=== PATIENT | male | born 1985 | race Caucasian/White ===

== ENCOUNTER 2017-11-09 21:37 | Emergency (ER) | payer MEDICAID ==
[~2017-11-09] VITALS: Ht 180.3 cm; Wt 136.4 kg
[2017-11-09 21:47] VITALS: Ht 180.3 cm; Wt 136.4 kg
[2017-11-09] MEDS ORDERED: DEPAKOTE500 MG PO (21:49)
[2017-11-09] MEDS ORDERED: HALDOL5 MG PO (21:49)
[2017-11-09] MEDS ORDERED: LOPID600 MG PO (21:50)
[2017-11-09] MEDS ORDERED: COLACE100 MG PO (21:50)
[2017-11-09] MEDS ORDERED: PROZAC20 MG PO (21:50)
[2017-11-09] MEDS ORDERED: BENZTROPINE MESY1 MG PO (21:50)
[2017-11-09] MEDS ORDERED: OMEPRAZOLE20 M1 PO (21:51)
[2017-11-09] MEDS ORDERED: DESMOPRESSIN A0.2 MG PO (21:51)
[2017-11-09] MEDS ORDERED: NIASPAN500 MG PO (21:52)
[2017-11-09] MEDS ORDERED: TRAZODONE HCL100 MG (21:52)
[2017-11-09 22:10] LABS: UDS - AMPHET NEGATIVE QUAL (NEGATIVE); UDS - BARB NEGATIVE QUAL (NEGATIVE); UDS - BENZO NEGATIVE QUAL (NEGATIVE); UDS - COCAINE NEGATIVE QUAL (NEGATIVE); UDS - OPIATE NEGATIVE QUAL (NEGATIVE); UDS - PCP NEGATIVE QUAL (NEGATIVE); UDS - THC NEGATIVE QUAL (NEGATIVE)
[2017-11-09 22:21] LABS: APPEARANCE CLEAR (CLEAR); BILIRUBIN NEGATIVE (NEGATIVE); COLOR YELLOW (YELLOW); GLUCOSE NEGATIVE (NEGATIVE); KETONE NEGATIVE (NEGATIVE); NITRITE NEGATIVE (NEGATIVE); PH 5.5 (5.0-6.0); PROTEIN NEGATIVE (NEGATIVE); SPECIFIC GRAVITY 1.015 (1.005-1.020); UROBILINOGEN NORMAL (NORMAL)
[2017-11-09 22:23] LABS: BACTERIA FEW /hpf (NONE SEEN); RED CELLS - URINE 0-5 /hpf (0-5); WHITE CELLS - URINE 0-5 /hpf (0-5)
[2017-11-09 22:24] LABS: BASOPHILS 0.3 % (0-2); EOSINOPHILS 1.3 % (0-7); HEMATOCRIT 39.4 % (42.0-54.0); HEMOGLOBIN 13.4 g/dL (13.5-17.5); IMMATURE GRANULOCYTES 0.2 % (0-5); LYMPHOCYTES 30.3 % (15-50); MCH 31.5 pg (26.0-34.0); MCV 92.5 fL (80.0-100.0); MEAN PLATELET VOLUME 9.7 fL (7.4-10.4); MONOCYTES 16.7 % (2-11); NEUTROPHILS 51.2 % (40-80); RBC 4.26 10x6/uL (4.20-6.10); RDW 12.7 % (11.5-14.5); WBC 6.3 10x3/uL (4.8-10.8)
[2017-11-09 22:25] LABS: PLATELET COUNT 154 10x3/uL (130-400)
[2017-11-09 22:36] LABS: ALBUMIN 3.5 g/dL (3.4-5.0); ALKALINE PHOSPHATASE 61 U/L (46-116); ALT (SGPT) 23 U/L (10-68); BILIRUBIN - TOTAL 0.19 mg/dL (0.2-1.3); CALC OSMOLALITY 279 mosm/kg (275-300); CALCIUM 9.2 mg/dL (8.5-10.1); CARBON DIOXIDE 30.3 mmol/L (21.0-32.0); CHLORIDE - SERUM 105 mmol/L (98-107); CREATININE - SERUM 0.7 mg/dL (0.6-1.3); GLUCOSE 98 mg/dL (74-106); POTASSIUM - SERUM 4.2 mmol/L (3.5-5.1); PROTEIN - SERUM 6.9 g/dL (6.4-8.2); SODIUM 141 mmol/L (136-145); UREA NITROGEN 11 mg/dL (7-18); VALPROIC ACID (DEPAKOTE) 48.1 ug/mL (50.0-100.0); eGFR NON AFRICAN AMERICAN > 90 mL/min (90-120)
[2017-11-10 00:45] VITALS: BP 120/69
== END 2017-11-10 01:20 ==
LOC: D.ER 21:37
PROVIDERS: Family Medicine
DX: R45.851 Suicidal ideations (principal); R44.0 Auditory hallucinations; R44.1 Visual hallucinations; F17.200 Nicotine dependence, unspecified, uncomplicated

== ENCOUNTER 2018-09-04 12:59 | Emergency (ER) | payer MEDICAID ==
[~2018-09-04] VITALS: Ht 180.3 cm; Wt 90.9 kg
[~2018-09-04 12:59] MED LIST: BENZTROPINE MESY1 MG PO; COLACE100 MG PO; DEPAKOTE500 MG PO; DESMOPRESSIN A0.2 MG PO; HALDOL5 MG PO; LOPID600 MG PO; NIASPAN500 MG PO; OMEPRAZOLE20 M1 PO; PROZAC20 MG PO; TRAZODONE HCL100 MG
[2018-09-04 13:18] VITALS: Ht 180.3 cm; Wt 90.9 kg
[2018-09-04 13:48] LABS: BASOPHILS 0.3 % (0-2); EOSINOPHILS 1.1 % (0-7); HEMATOCRIT 38.4 % (42.0-54.0); HEMOGLOBIN 13.4 g/dL (13.5-17.5); IMMATURE GRANULOCYTES 0.2 % (0-5); LYMPHOCYTES 35.3 % (15-50); MCH 30.5 pg (26.0-34.0); MCHC 34.9 g/dL (31.0-37.0); MCV 87.5 fL (80.0-100.0); MEAN PLATELET VOLUME 8.7 fL (7.4-10.4); MONOCYTES 10.7 % (2-11); NEUTROPHILS 52.4 % (40-80); PLATELET COUNT 164 10x3/uL (130-400); RBC 4.39 10x6/uL (4.20-6.10); RDW 14.1 % (11.5-14.5); WBC 6.3 10x3/uL (4.8-10.8)
[2018-09-04 13:48] LABS: UDS - AMPHET NEGATIVE QUAL (NEGATIVE); UDS - BARB NEGATIVE QUAL (NEGATIVE); UDS - BENZO NEGATIVE QUAL (NEGATIVE); UDS - COCAINE NEGATIVE QUAL (NEGATIVE); UDS - OPIATE NEGATIVE QUAL (NEGATIVE); UDS - PCP NEGATIVE QUAL (NEGATIVE); UDS - THC NEGATIVE QUAL (NEGATIVE)
[2018-09-04 13:56] LABS: APPEARANCE CLEAR (CLEAR); BILIRUBIN NEGATIVE (NEGATIVE); COLOR STRAW (YELLOW); GLUCOSE NEGATIVE (NEGATIVE); KETONE NEGATIVE (NEGATIVE); NITRITE NEGATIVE (NEGATIVE); PROTEIN NEGATIVE (NEGATIVE); UROBILINOGEN NORMAL (NORMAL)
[2018-09-04 14:01] LABS: ALBUMIN 3.8 g/dL (3.4-5.0); ALKALINE PHOSPHATASE 56 U/L (46-116); ALT (SGPT) 8 U/L (10-68); BILIRUBIN - TOTAL 0.31 mg/dL (0.2-1.3); CALC OSMOLALITY 279 mosm/kg (275-300); CARBON DIOXIDE 30.8 mmol/L (21.0-32.0); CHLORIDE - SERUM 104 mmol/L (98-107); CREATININE - SERUM 0.7 mg/dL (0.6-1.3); GLUCOSE 96 mg/dL (74-106); MAGNESIUM - SERUM 1.9 mg/dL (1.8-2.4); POTASSIUM - SERUM 4.5 mmol/L (3.5-5.1); SODIUM 140 mmol/L (136-145); UREA NITROGEN 14 mg/dL (7-18); eGFR NON AFRICAN AMERICAN > 90 mL/min (90-120)
[2018-09-04 21:16] VITALS: BP 111/68
== END 2018-09-04 21:16 ==
LOC: D.ER 12:59
PROVIDERS: Family Medicine
DX: R45.851 Suicidal ideations (principal); F32.9 Major depressive disorder, single episode, unspecified

== ENCOUNTER 2018-09-18 21:07 | Emergency (ER) | payer OTHER ==
[~2018-09-18] VITALS: Ht 188 cm; Wt 115.5 kg
[2018-09-18 21:20] VITALS: Ht 188 cm; Wt 115.5 kg
[2018-09-18 21:29] LABS: APPEARANCE CLEAR (CLEAR); BILIRUBIN NEGATIVE (NEGATIVE); COLOR YELLOW (YELLOW); GLUCOSE NEGATIVE (NEGATIVE); KETONE NEGATIVE (NEGATIVE); NITRITE NEGATIVE (NEGATIVE); PROTEIN TRACE mg/dL (NEGATIVE); UROBILINOGEN NORMAL (NORMAL)
[2018-09-18 21:31] LABS: BACTERIA FEW /hpf (NONE SEEN); RED CELLS - URINE OCC /hpf (0-5); WHITE CELLS - URINE RARE /hpf (0-5)
[2018-09-18 21:38] LABS: UDS - AMPHET NEGATIVE QUAL (NEGATIVE); UDS - BARB NEGATIVE QUAL (NEGATIVE); UDS - BENZO NEGATIVE QUAL (NEGATIVE); UDS - COCAINE NEGATIVE QUAL (NEGATIVE); UDS - OPIATE NEGATIVE QUAL (NEGATIVE); UDS - PCP NEGATIVE QUAL (NEGATIVE); UDS - THC NEGATIVE QUAL (NEGATIVE)
[2018-09-18 21:47] LABS: HEMATOCRIT 37.6 % (42.0-54.0); HEMOGLOBIN 13.2 g/dL (13.5-17.5); MCH 30.8 pg (26.0-34.0); MCHC 35.1 g/dL (31.0-37.0); MCV 87.9 fL (80.0-100.0); MEAN PLATELET VOLUME 8.9 fL (7.4-10.4); PLATELET COUNT 175 10x3/uL (130-400); RBC 4.28 10x6/uL (4.20-6.10); RDW 13.8 % (11.5-14.5); WBC 5.7 10x3/uL (4.8-10.8)
[2018-09-18 22:03] LABS: ALBUMIN 3.9 g/dL (3.4-5.0); ALKALINE PHOSPHATASE 62 U/L (46-116); ALT (SGPT) 10 U/L (10-68); BILIRUBIN - TOTAL 0.17 mg/dL (0.2-1.3); CALC OSMOLALITY 280 mosm/kg (275-300); CALCIUM 8.9 mg/dL (8.5-10.1); CARBON DIOXIDE 24.4 mmol/L (21.0-32.0); CHLORIDE - SERUM 105 mmol/L (98-107); CREATININE - SERUM 0.8 mg/dL (0.6-1.3); GLUCOSE 114 mg/dL (74-106); MAGNESIUM - SERUM 1.7 mg/dL (1.8-2.4); POTASSIUM - SERUM 4.2 mmol/L (3.5-5.1); SODIUM 140 mmol/L (136-145); UREA NITROGEN 16 mg/dL (7-18); eGFR NON AFRICAN AMERICAN > 90 mL/min (90-120)
[2018-09-18 22:10] LABS: EOSINOPHILS 3 % (0-7); LYMPHOCYTES 65 % (15-50); MONOCYTES 7 % (2-11); NEUTROPHILS 25 % (40-80); PLATELET ESTIMATE NORMAL; TEAR DROP CELLS OCC
--- NOTE | 2018-09-18 22:32 | NUR ---
DR MARTINEZ NOTIFIED AND SITTER ORDERED. SITTER AT BEDSIDE, NOTIFIED CHARGE NURSE AND ATTENDING IN REGARDS TO ASSESSMENT FINDINGS. RESOURCES GIVEN TO PT AND SAFETY PLAN INITIATED.
[2018-09-19 01:02] VITALS: BP 117/78
== END 2018-09-19 01:03 ==
LOC: D.ER 21:07
PROVIDERS: Family Medicine
DX: R45.851 Suicidal ideations (principal)

== ENCOUNTER 2018-10-02 21:40 | Emergency (ER) | payer OTHER ==
[~2018-10-02] VITALS: Ht 188 cm; Wt 113.4 kg
[2018-10-02 21:45] VITALS: Ht 188 cm; Wt 113.4 kg
[2018-10-02 21:57] LABS: APPEARANCE CLEAR (CLEAR); BILIRUBIN NEGATIVE (NEGATIVE); COLOR STRAW (YELLOW); GLUCOSE NEGATIVE (NEGATIVE); KETONE NEGATIVE (NEGATIVE); NITRITE NEGATIVE (NEGATIVE); PROTEIN TRACE mg/dL (NEGATIVE); UROBILINOGEN NORMAL (NORMAL)
[2018-10-02 21:59] LABS: BACTERIA FEW /hpf (NONE SEEN); EPITHELIAL CELLS 0-5 /hpf (0-5); RED CELLS - URINE 0-5 /hpf (0-5); WHITE CELLS - URINE 0-5 /hpf (0-5)
[2018-10-02 22:06] LABS: BASOPHILS 0.5 % (0-2); EOSINOPHILS 1.4 % (0-7); HEMOGLOBIN 12.5 g/dL (13.5-17.5); LYMPHOCYTES 38.3 % (15-50); MCH 30.6 pg (26.0-34.0); MCHC 35.7 g/dL (31.0-37.0); MCV 85.8 fL (80.0-100.0); MEAN PLATELET VOLUME 8.4 fL (7.4-10.4); MONOCYTES 9.7 % (2-11); NEUTROPHILS 50.1 % (40-80); PLATELET COUNT 192 10x3/uL (130-400); RBC 4.08 10x6/uL (4.20-6.10); RDW 13.4 % (11.5-14.5); WBC 7.6 10x3/uL (4.8-10.8)
[2018-10-02 22:06] LABS: UDS - AMPHET NEGATIVE QUAL (NEGATIVE); UDS - BARB NEGATIVE QUAL (NEGATIVE); UDS - BENZO NEGATIVE QUAL (NEGATIVE); UDS - COCAINE NEGATIVE QUAL (NEGATIVE); UDS - OPIATE NEGATIVE QUAL (NEGATIVE); UDS - PCP NEGATIVE QUAL (NEGATIVE); UDS - THC NEGATIVE QUAL (NEGATIVE)
[2018-10-02 22:18] LABS: ALBUMIN 3.8 g/dL (3.4-5.0); ALKALINE PHOSPHATASE 57 U/L (46-116); ALT (SGPT) 15 U/L (10-68); BILIRUBIN - TOTAL 0.21 mg/dL (0.2-1.3); CALC OSMOLALITY 279 mosm/kg (275-300); CALCIUM 9.1 mg/dL (8.5-10.1); CARBON DIOXIDE 25.4 mmol/L (21.0-32.0); CHLORIDE - SERUM 104 mmol/L (98-107); CREATININE - SERUM 0.7 mg/dL (0.6-1.3); GLUCOSE 93 mg/dL (74-106); POTASSIUM - SERUM 3.9 mmol/L (3.5-5.1); PROTEIN - SERUM 7.1 g/dL (6.4-8.2); SODIUM 139 mmol/L (136-145); UREA NITROGEN 19 mg/dL (7-18); eGFR NON AFRICAN AMERICAN > 90 mL/min (90-120)
[2018-10-02 22:30] LABS: THYROID STIMULATING HORMONE 11.06 uIU/mL (0.36-3.74); VALPROIC ACID (DEPAKOTE) 28.9 ug/mL (50.0-100.0)
--- NOTE | 2018-10-02 22:31 | NUR ---
DR MARTINEZ NOTIFIED AND SITTER ORDERED. SITTER AT BEDSIDE, NOTIFIED CHARGE NURSE AND ATTENDING IN REGARDS TO ASSESSMENT FINDINGS. RESOURCES GIVEN TO PT AND SAFETY PLAN INITIATED.
[2018-10-03 01:30] LABS: T4 THYROXIN - FREE 0.86 ng/dL (0.76-1.46)
[2018-10-03 04:03] VITALS: BP 121/80
== END 2018-10-03 07:12 ==
LOC: D.ER 21:40
PROVIDERS: Family Medicine
DX: R44.1 Visual hallucinations (principal); F31.9 Bipolar disorder, unspecified; F20.9 Schizophrenia, unspecified